=== PATIENT | male | born 1930 | race Caucasian/White ===

== ENCOUNTER 2016-08-08 05:22 | Observation (INO) | payer MEDICARE, OTHER ==
[~2016-08-08] VITALS: Ht 175.3 cm; Wt 77.5 kg
--- NOTE | ~2016-08-08 | HP ---
PATIENT'S NAME: MANE HART [facility] AGE: 85 Y [address] ROOM: [place] [address] LOCATION: [facility] [place] ADMIT DATE: 07/27/2016 History & Physical DISCHARGE DATE: FAMILY PHYSICIAN: Mio Rainey MD ATTENDING PHYSICIAN: Syd Huynh DATE OF SERVICE: SUBJECTIVE: An 85-year-old male who has a past history of transitional cell carcinoma of the bladder. He was seen here in June 2014 because of microscopic hematuria and a positive cytology, and at that time, he was found to have transitional cell carcinoma of the bladder, low-grade involving most of the trigone. This was resected and he received a course of BCG, instilled into the bladder weekly for 6 weeks. Followup cystoscopy in November 2014 showed no recurrence of his transitional cell carcinoma. In January 2016, he was found to have a solid nasty-looking tumor involving the left jazz-trigone with small papillary tumors throughout the bladder. He received a course of BCG again. In February 2016, he was found to have hydronephrosis to the left kidney and left retrograde showed a large filling defect in the left distal ureter. In February 2016, he had a partial cystectomy and ureteral reimplant. He was seen again in June 2016. At that time, he was having gross hematuria and evaluation of bladder revealed a tumor involving the left side of the bladder, extending across to the dome of the bladder. This was resected transurethrally and he had a low-grade papillary transitional cell carcinoma and showed a low-grade tumor. It is significant that he had that much regrowth in such a short time. Therefore, he is seen again for cystoscopy and probable TUR on bladder tumor. He is not a candidate for a total cystectomy. PAST MEDICAL HISTORY: Illnesses: 1. Arteriosclerotic heart disease. 2. Hypertension. 3. Carcinoma of the prostate. 4. Carcinoma of the bladder. 5. Azotemia. Operations: PATIENT'S NAME: MANE HART [facility] AGE: 85 Y [address] ROOM: [place] [address] LOCATION: [facility] [place] ADMIT DATE: 07/27/2016 History & Physical DISCHARGE DATE: FAMILY PHYSICIAN: Mio Rainey MD ATTENDING PHYSICIAN: Syd Huynh 1. Total prostatectomy. 2. Carotid endarterectomy. 3. As above. ALLERGIES: SULFA. PHYSICAL EXAMINATION: GENERAL: A well-developed, well-nourished male. CHEST: Clear to auscultation. HEART: Normal sinus rhythm. ABDOMEN: Soft with no palpable masses. : Normal penis. Testicles are normal size and normal to palpation. Prostatic fossa is empty. RECTAL: Good sphincter tone and no palpable masses. EXTREMITIES: Negative. IMPRESSION: Recurrent transitional cell carcinoma of the bladder. MD KAROL MAZARIEGOS/kevin /[id number] D: [id number] T: [id number] HISTORY & PHYSICAL
--- NOTE | ~2016-08-08 | OR ---
PATIENT'S NAME: MANE HART [facility] AGE: 85 Y [address] ROOM: [place] [address] LOCATION: [facility] [place] ADMIT DATE: 08/08/2016 OR/Procedure Report DISCHARGE DATE: FAMILY PHYSICIAN: Mio Rainey MD ATTENDING PHYSICIAN: Jeromy Huynh SURGEON: Jeromy Huynh MD TICKET DISPENSER CHANGER: DATE OF PROCEDURE: 08/08/2016 PREOPERATIVE DIAGNOSIS: Transitional cell carcinoma of the bladder. POSTOPERATIVE DIAGNOSIS: Transitional cell carcinoma of the bladder. OPERATION: Transurethral resection of the bladder tumor. DESCRIPTION OF PROCEDURE: After adequate anesthesia, he was prepped and draped. A cystoscope was passed. The anterior urethra was normal. Prostate was absent. Examination of the bladder revealed a tumor at the bladder neck area, and then in the dome of the bladder to the left, there was an extensive tumor again. Resectoscope was inserted and the tumor in the dome was all resected and the entire area was then thoroughly fulgurated with a rollerball. Tumor at the bladder neck was also resected. A 20 3-way flow June catheter was inserted and he was accompanied to recovery area. JEROMY HUYNH MD EKL/modl /[id number] d: 08/08/162127 t: 08/09/16 1021, OPERATIVE SUMMARY
[~2016-08-08 05:22] MED LIST: ASPIRIN (CHILDR81 MG PO; ASPIRIN325 MG PO; CENTRUM SILVER1 TAB PO; COZAAR100 MG PO; DOCUSATE SODIU1 EACH PO; ENALAPRIL MALEA20 MG PO; FISH OIL 1,2001 EACH PO; LIBRIUM5 MG PO; LIPITOR20 M1 PO; LOPRESSOR50 MG PO; MILK OF MA400 MG/5 M PO; NITROSTAT0.4 MG SL; PRESERVISION A1 EACH PO; RESTASIS1 EACH OPHTH; SYMBICORT 80-10.2 GM INH; THERA-VITE W/ B1 TAB PO; TYLENOL EXTRA500 MG PO; VASOTEC20 MG PO
[2016-08-08 06:07] LABS: BASOPHIL # 0.1 K/uL (0.0-0.2); BASOPHIL % 0.8 %; EOSINOPHIL # 0.2 K/uL (0.0-0.5); EOSINOPHIL % 3.2 %; HEMATOCRIT 34.9 % (33.0-50.0); HEMOGLOBIN 10.8 g/dL (11.0-16.0); IMMATURE GRANULOCYTE % 0.3 %; LYMPHOCYTE # 1.9 K/uL (0.8-4.0); LYMPHOCYTE % 26.3 %; MCH 26.7 pg (27.0-34.0); MCHC 30.9 gm/dL (32.0-36.5); MCV 86.2 fl (83.0-98.0); MONOCYTE # 0.6 K/uL (0.0-1.0); MONOCYTE % 8.8 %; MPV 9.3 fl (9.4-12.4); NEUTROPHIL # (ANC) 4.3 K/uL (1.4-9.0); NEUTROPHIL % 60.6 %; NRBC % 0 /100WBC (0-0.00); PLATELET COUNT 209 K/uL (150-450); RDW-CV 13.8 % (11.9-14.6); WBC 7.1 K/uL (4.0-11.0)
[2016-08-08 06:10] LABS: RBC 4.05 M/uL (3.50-5.50)
--- NOTE | 2016-08-08 14:33 | NUR ---
Significant Event: PATIENT ALERT AND ORIENTED X 3. AFEBRILE, VSS. PACED RHYTHM. O2 SATS ABOVE 90% ON ROOM AIR. PAIN TOLERABLE. FENTANYL IVP GIVEN IN PACU FOR SEVERE PAIN. SEE EMAR. DR. KIRK NOTIFIED OF CONTINUED CATHETER DISCOMFORT AND B&O SUPPOSITORY GIVEN AT 0904. PATIENT HAS BEEN RESTING COMFORTABLY SINCE. REPORTS MILD "DISCOMFORT". 3-WAY CATHETER TO CBI, MODERATE FLOW, PINK TINGED URINE. 6000 ML IRRIGATED, 5700 ML URINE OUT IN PACU. FLUSHED X 2 DUE TO BLOOD CLOTS. ACCUCHEK TAKEN AT 0817 = 104, AND 1122 = 139. MILD SLIDING SCALE ORDERED. IV FLUIDS INFUSING TO RIGHT LATERAL FOREARM. TOLERATING CLEAR LIQUIDS WELL. TO REMAIN ON BEDREST, REPOSITIONED INTERMITTENTLY. PNEUMATIC PUMPS ON. DAUGHTER UPDATED THROUGHOUT PACU STAY, REFUSED OFFER TO COME TO PACU. Follow up:
--- NOTE | 2016-08-08 19:07 | NUR ---
Significant Event: Patient A/O x3. VS stable, on RA. Patient has CBI going at moderate. Patient denies numbness or tingling to extremities. Patient arrived to the unit from PACU at 1425. Patient bedrest with q2h repo. No complains of pain. Patient was given beef broth, orange juice, and cracker. Patient has a HX of low blood sugars. Patient pleasant and cooperative with cares. Follow up:
--- NOTE | 2016-08-09 04:01 | NUR ---
Significant Event:PT IS A/O X3. ON BEDREST. HAS BASHIR W/ CBI RUNNING @ SLOW RATE, LIGHT YELLOW TO SLIGHT PINK @ TIMES. IV TO R FA IS SL. PT GOES BY "[facility]O", PT IS NOT DIABETIC BUT DOES HAVE ISSUSES W/ LOW BS. PT GIVEN CARBS THROUGHOUT THE NIGHT DUE TO FLUIDS BEING SL. PT RAN SLIGHT TEMP OF 100.0 @ 0000, NO C/O PAIN. PT HOPES TO GO HOME TODAY. Follow up:EDUARDO
--- NOTE | 2016-08-09 11:24 | NUR ---
D: Orders received for the patient to be discharged to home today with his harmon catheter. I: Dismissal instructions were prepared and reviewed with the patient virtually. The following information was discussed including Krames teaching sheets: Dishcarge instructions for Transurethral bladder tumor resection, harmon catheter removal, Discharge instructions-caring for your Indwelling urinary catheter, Emptying and cleaning your urinary catheter bag, discharge instructions for your leg bag, and Preventing DVT. Reviewed follow up appointment with Dr. Huynh. R: The patient verbalized understanding of the dismissal education at the time of teaching with no further questions. P: The above information was shared with the primary nurse and the charge nurse the the dismissal education was completed. The patient is ready for discharge to the front door via wheel chair by nursing staff.
--- NOTE | 2016-08-09 12:32 | NUR ---
SPOKE TO PATIENT REGARDING CM AND OUR ROLE. 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 HE ASKED ABOUT RESOURCES FOR HER AND WANTED THE ADRESS OF [employer]. I GAVE HIM INFO ON THIS. HE REPORTS THAT HE HAS CHILREN THAT LIVE NEAR BY WHO HELP HIM WHEN HE ASKS FOR HELP. HE ALSO WOULD LIKE A WALKER. I GAVE HIM RESOURCES OF WHERE HE CAN GET ONE. HE REPORTS THAT HIS DAUGHTER IS CHECKING ON GETTING ONE FOR HOME. PATIENT DOES NOT ANTICIPATE ANY OTHER DISCHARGE NEEDS AT THIS TIME.
--- NOTE | 2016-08-09 13:50 | NUR ---
DISMISSED PER W/C TO CAR ACCOMPANIED BY HOME HEALTH CAREGIVER & DAUGHTER.vIRTUAL NURSE DID DISCHARGE TEACHING.
[2016-11-29] MEDS ORDERED: CENTRUM SILVER1 EAC5 PO (10:03)
[2016-11-29] MEDS ORDERED: PRESERVISION A1 EACH PO (10:03)
== END 2016-08-09 11:35 | disposition disaster alternative care site (69) ==
LOC: GSDC 05:22 → GMSU 05:22 → GSDC 05:24 → GMSU 05:24
PROVIDERS: ADMIT Urology
PROC: 0T5B8ZZ Destruction of Bladder, Via Natural or Artificial Opening Endoscopic (ICD-10-PCS; principal; 2016-08-08)
DX: C67.1 Malignant neoplasm of dome of bladder (principal); I25.10 Atherosclerotic heart disease of native coronary artery without angina pectoris; I10 Essential (primary) hypertension; R79.89 Other specified abnormal findings of blood chemistry; Z88.2 Allergy status to sulfonamides; Z98.890 Other specified postprocedural states
CPT/HCPCS: J3010; J7030

== ENCOUNTER 2016-09-26 05:21 | Observation (INO) | payer MEDICARE, OTHER ==
[~2016-09-26] VITALS: Ht 175.3 cm; Wt 70.2 kg
--- NOTE | ~2016-09-26 | HP ---
PATIENT'S NAME: MANE HART [facility] AGE: 86 Y [address] ROOM: [place] [address] LOCATION: [place] ADMIT DATE: 09/26/2016 History & Physical DISCHARGE DATE: FAMILY PHYSICIAN: Mio Rainey MD ATTENDING PHYSICIAN: Jeromy Huynh DATE OF SERVICE: HISTORY OF PRESENT ILLNESS: An 86-year-old male who has a past history of transitional cell carcinoma of the bladder. In June 2014, he was found to have microscopic hematuria and a positive cytology, and his evaluation revealed transitional cell carcinoma of the bladder with low grade involving most of the trigone. This was resected and he received a course of BCG. A followup cystoscopy in November 2014 showed no recurrence. In January 2016, he was found to have a solid nasty looking tumor involving the left hemitrigone with small papillary tumors throughout the bladder. These were resected, and he received a course of BCG. His evaluation in February 2016 revealed hydronephrosis of the left kidney with a large filling defect in the left distal ureter, and he subsequently had a partial cystectomy with ureteral reimplant. Since then, his tumor has become more aggressive, more invasive, more poorly differentiated, and required frequent TUR of the bladder tumors. PAST MEDICAL HISTORY: Illnesses: 1. Arteriosclerotic heart disease. 2. Hypertension. 3. Carcinoma of the prostate. 4. Carcinoma of the bladder. 5. Azotemia. PAST SURGICAL HISTORY: Operations: 1. Total prostatectomy. 2. Carotid endarterectomy. 3. As above. ALLERGIES: SULFA. PATIENT'S NAME: MANE HART [facility] AGE: 86 Y [address] ROOM: [place] [address] LOCATION: [facility] ADMIT DATE: 09/26/2016 History & Physical DISCHARGE DATE: FAMILY PHYSICIAN: Mio Rainey MD ATTENDING PHYSICIAN: Jeromy Huynh PHYSICAL EXAMINATION: GENERAL: A well-developed, well-nourished male. CHEST: Clear to auscultation. HEART: Normal sinus rhythm. ABDOMEN: Soft with no palpable masses. GENITOURINARY: Normal penis. Testicles are normal size and normal to palpation. Prostatic fossa is empty. RECTAL: Good sphincter tone. EXTREMITIES: No edema. IMPRESSION: Recurrent transitional cell carcinoma of the bladder. JEROMY K MD KAROL HUYNH/kevin /[id number] D: [id number] T: [id number] HISTORY & PHYSICAL
--- NOTE | ~2016-09-26 | OR ---
PATIENT'S NAME: MANE HART [facility] AGE: 86 Y [address] ROOM: [place] [address] LOCATION: [facility] [place] ADMIT DATE: 09/27/2016 OR/Procedure Report DISCHARGE DATE: FAMILY PHYSICIAN: Mio Rainey MD ATTENDING PHYSICIAN: Jeromy Huynh SURGEON: Jeromy Huynh MD ELECTRICAL TECH/PROJECT MANAGER: DATE OF PROCEDURE: 09/27/2016 PREOPERATIVE DIAGNOSIS: Transitional cell carcinoma of the bladder. POSTOPERATIVE DIAGNOSIS: Transitional cell carcinoma of the bladder. PROCEDURE PERFORMED: Cystoscopy, fulguration of bladder tumor. DESCRIPTION OF PROCEDURE: After adequate anesthesia, cystoscope was inserted and he had tumor around the left trigone area and then laterally on the left lateral wall towards the dome. Resectoscope was inserted and with the rollerball all this tumor was fulgurated. A #20 three-way June catheter was inserted. He was accompanied to the recovery area. JEROMY HUYNH MD EKL/modl /[id number] d: 09/28/16 0452 t: 09/29/16 0431, OPERATIVE SUMMARY
[2016-09-26 05:56] LABS: BASOPHIL # 0.1 K/uL (0.0-0.2); BASOPHIL % 0.8 %; EOSINOPHIL # 0.2 K/uL (0.0-0.5); EOSINOPHIL % 3.2 %; HEMATOCRIT 35.6 % (33.0-50.0); HEMOGLOBIN 11.5 g/dL (11.0-16.0); IMMATURE GRANULOCYTE % 0.1 %; LYMPHOCYTE # 2.2 K/uL (0.8-4.0); LYMPHOCYTE % 30.7 %; MCH 28.8 pg (27.0-34.0); MCHC 32.3 gm/dL (32.0-36.5); MCV 89.2 fl (83.0-98.0); MONOCYTE # 0.7 K/uL (0.0-1.0); MONOCYTE % 9.5 %; MPV 9.7 fl (9.4-12.4); NEUTROPHIL % 55.7 %; NRBC % 0 /100WBC (0-0.00); PLATELET COUNT 224 K/uL (150-450); RBC 3.99 M/uL (3.50-5.50); RDW-CV 17.4 % (11.9-14.6); WBC 7.2 K/uL (4.0-11.0)
[2016-09-26 06:13] LABS: ALBUMIN 3.6 gm/dL (3.5-5.0); ANION GAP 11.8 (10.0-19.0); CALCIUM 8.7 mg/dL (8.5-10.5); CREATININE 2.7 mg/dL (0.6-1.3); POTASSIUM 4.8 mMol/L (3.7-5.1); TOTAL BILIRUBIN 1.4 mg/dL (0.0-1.5); TOTAL PROTEIN 7.8 g/dL (6.0-8.4)
--- NOTE | 2016-09-26 15:58 | NUR ---
Significant Event: Patient is alert and oriented x3. Blood pressure has been in the 80-100's. Dr. Huynh is aware. Has denied pain since being to the floor. Bedrest. Tolerating clear liquids. Fluids infusing into the R)wrist. Very pleasant patient. Cooperative with cares.
--- NOTE | 2016-09-27 01:39 | NUR ---
SIGNIFICANT EVENT: Patient alert & oriented. VSS on RA - Temp of 100.8 at second assessment but decreased with removal of blankets. R) wrist PIV infusing D5 1/2NS at 100 mL/hr. Tolerating clear liquids well. Bedrest. CBI running at moderate rate - urine is pink to pale pink. Allergies to sulfa and lidocaine. Pleasant and cooperative with cares.
--- NOTE | 2016-09-27 13:55 | NUR ---
Significant Event: Pt c/o intermittent penial pain, good relief with tylenol. June draining drk red urine this am. Dr. Huynh rounded around 1030 and wanted CBI started again, bedrest. CBI running very slow, urine clear. Regular diet. Possible dc tomorrow. Follow up:
--- NOTE | 2016-09-28 03:31 | NUR ---
Significant Event: Patient alert and oriented X4. Resting in bed. CBI restarted yesterday. Patient upset that he is no longer receiving IV dextrose and states that staff doesn't understand he needs to eat every 2 hours to keep his blood sugars up. Patient calmed down and asked to have snacks at the bedside to he could snack throughout the night. Vitals stable and on room air. Has pacemaker. Tylenol given at bed time. June has light pink urine. Some clots noted. Probably D/C today. IV to R) wrist Follow up:
--- NOTE | 2016-09-28 14:15 | NUR ---
D: ORDERS RECEIVED FOR THE PATIENT TO BE DISCHARGED TO HOME TODAY. I: DISMISSAL INSTRUCTIONS WERE PREPARED BY THE VIRTUAL NURSE AND REVIEWED WITH THE PATIENT AND FAMILY AT THE BEDSIDE BY THE PRIMARY NURSE KAREN QUEEN. THE FOLLOWING INFORMATION WAS PREPARED DISCHARGE INSTRUCTIONS FOR TRANSURETHRAL BLADDER TUMOR RESECTION, DISCHARGE INSTRUCTIONS CARING FOR YOUR INDWELLING URINARY CATHETER, EMPTYING AND CLEANING YOUR URINARY CATHETER BAG AND PREVENTING DVT. DR. KIRK WILL CALL THE PATIENT AT HOME ON MONDAY NO FOLLOW UP APPOINTMENT AT THIS TIME. R: WILL PROVIDE EDUCATION AND ANSWER ALL QUESTIONS AT THAT TIME. P: THE ABOVE INFORMATION WAS SHARED WITH THE PRIMARY NURSE AND THE CHARGE NURSE THAT THE DISMISSAL INSTRUCTIONS WERE COMPLETED AND READY TO REVIEW WITH THE PATIENT.
--- NOTE | 2016-09-28 15:08 | NUR ---
Significant event: Patient is alert and oriented. VSS. ON room air. IV dc'd at 1400. June in [address] and is patent. Has no complaints of pain. Is tolerating regular diet. Has had BM's today. Ambulates with SBA and cane. Had glass of orange juice while waiting for paperwork. Daughter here to take patient home. Copy of discharge instructions, prescripitions, and education given to the patient. Informed pt that Dr Huynh will call him at home on Monday. Patient verbalizes understanding. Wheeled to north front doors to [employer] car.
[2016-11-29] MEDS ORDERED: PRESERVISION A1 EACH PO (10:03)
[2016-11-29] MEDS ORDERED: CENTRUM SILVER1 EAC5 PO (10:03)
== END 2016-09-28 14:22 | disposition disaster alternative care site (69) ==
LOC: GSDC 05:21 → GPOC 05:30 → GMSU 09:42 → GPOC 13:00 → GSDC 09-27 10:40 → GMSU 09-27 10:40
PROVIDERS: ADMIT Urology
PROC: 0T5B8ZZ Destruction of Bladder, Via Natural or Artificial Opening Endoscopic (ICD-10-PCS; principal; 2016-09-27)
DX: C67.0 Malignant neoplasm of trigone of bladder (principal); C67.2 Malignant neoplasm of lateral wall of bladder; I25.10 Atherosclerotic heart disease of native coronary artery without angina pectoris; I10 Essential (primary) hypertension; R79.89 Other specified abnormal findings of blood chemistry; Z85.46 Personal history of malignant neoplasm of prostate; Z88.0 Allergy status to penicillin; Z98.890 Other specified postprocedural states
CPT/HCPCS: G0378; J0713; J3010; J7040; J7120

== ENCOUNTER 2016-11-30 06:03 | Inpatient (IN) | payer MEDICARE, OTHER ==
[~2016-11-30] VITALS: Ht 175.3 cm; Wt 74.6 kg
--- NOTE | ~2016-11-30 | DS ---
PATIENT'S NAME: MANE HART [facility] AGE: 86 Y [address] ROOM: [place] [address] [place] [facility] [place] DATE: 12/05/2016 Discharge Summary DISCHARGE DATE: 12/09/2016 FAMILY PHYSICIAN: Mio Rainey MD ATTENDING PHYSICIAN: Jeromy Huynh HISTORY/HOSPITAL COURSE: An 86-year-old male who has transitional cell carcinoma of the bladder. The past month he has been having gross hematuria. Cystoscopy and TUR of bladder tumor were done. He had extensive tumor over the entire dome of the bladder, down the left lateral wall, and over the trigone. He was then admitted, on CBI. His creatinine was 2.7. Ultrasound study showed normal right kidney, [id number] hydronephrosis of the left kidney. His hematocrit and hemoglobin were also low. He was given 2 units of blood. He was then dismissed home. Arrangements will be made for a total cystectomy. DIAGNOSIS: Transitional cell carcinoma of the bladder, high grade, invasive. OPERATION: TUR of bladder tumor. DISPOSITION: As above. JEROMY HUYNH MD EKL/modl /[id number] d: 12/12/16 0604 t: 12/13/16 0433, DISCHARGE SUMMARY
--- NOTE | ~2016-11-30 | HP ---
PATIENT'S NAME: MANE HART AGE: 86 Y [address] ROOM: [place] [address] LOCATION: [facility] [place] ADMIT DATE: 11/30/2016 History & Physical DISCHARGE DATE: FAMILY PHYSICIAN: PHYSICIAN, UNKNOWN ATTENDING PHYSICIAN: Syd Huynh DATE OF SERVICE: HISTORY OF PRESENT ILLNESS: An 86-year-old male, who has a past history of transitional cell carcinoma of the urinary bladder. He was first seen here in 2014, because of microscopic hematuria and a positive cytology. At that time, he was found to have transitional cell carcinoma of the bladder, low grade, involving most of the trigone. This was resected transurethrally and then he received a course of BCG. Followup cystoscopy in 2014, showed no recurrence. On January 2016, he had a solid, nasty looking tumor involving the left hemitrigone with small papillary tumors throughout the bladder. He received another course of BCG after the tumor was resected. In February 2016, he had progression of his disease, had developed hydronephrosis of the left kidney, and had tumor involving the left distal ureter. He then had a partial cystectomy with ureteral reimplant. Since then, he has had progression of his tumor from a low-grade to a high- grade cancer. His tumor grows back. He is seen now for resection of the tumor since he is not a candidate for a total cystectomy. PAST MEDICAL HISTORY: Illnesses: 1. Arteriosclerotic heart disease. 2. Hypertension. 3. Cancer of the prostate. 4. Cancer of the bladder. 5. Azotemia. Operations: 1. Total prostatectomy. 2. Carotid endarterectomy. 3. As above. PATIENT'S NAME: MANE HART AGE: 86 Y [address] ROOM: [place] [address] LOCATION: [facility] [place] ADMIT DATE: 11/30/2016 History & Physical DISCHARGE DATE: FAMILY PHYSICIAN: PHYSICIAN, UNKNOWN ATTENDING PHYSICIAN: Syd Huynh ALLERGIES: SULFA. PHYSICAL EXAMINATION: GENERAL: A well-developed, well-nourished, alert male. CHEST: Clear. HEART: Normal sinus rhythm. ABDOMEN: Soft with no palpable masses. : Normal penis. Testicles are normal to palpation. Prostatic fossa is empty. RECTAL: Good sphincter tone. No palpable masses. EXTREMITIES: Negative. IMPRESSION: Transitional cell carcinoma of the bladder. PLAN: As above. MD KAROL MAZARIEGOS/kevin /[id number] D: [id number] T: [id number] HISTORY & PHYSICAL
--- NOTE | ~2016-11-30 | OR ---
PATIENT'S NAME: MANE HART [facility] AGE: 86 Y [address] ROOM: [place] [address] LOCATION: [facility] [place] [place] ADMIT DATE: 11/30/2016 OR/Procedure Report DISCHARGE DATE: FAMILY PHYSICIAN: Mio Rainey MD ATTENDING PHYSICIAN: Jeromy Huynh SURGEON: Jeromy Huynh MD PEDIATRIC CARE COORDINATOR: DATE OF PROCEDURE: 11/30/2016 PREOPERATIVE DIAGNOSES: 1. Hematuria. 2. Transitional cell carcinoma of the bladder. POSTOPERATIVE DIAGNOSES: 1. Hematuria. 2. Transitional cell carcinoma of the bladder. PROCEDURES: 1. Cysto evacuation of clots. 2. Cystoscopy and fulguration of extensive bladder tumor. DESCRIPTION OF PROCEDURE: After adequate anesthesia, he was prepped and draped. The cystoscope was inserted. His urine was grossly bloody and all the clots were irrigated from the bladder. Examination of the bladder revealed extensive tumor involving almost the entire bladder. On the right lateral wall, there was an area that was bleeding. This was fulgurated, also at the bladder neck area, the tumor was bleeding. This was extensively fulgurated. A 20 three-way June catheter was inserted and connected to continuous irrigation. He was accompanied to the recovery area. JEROMY HUYNH MD EKL/modl /[id number] d: 11/30/16 1001 t: 12/02/16 0432, OPERATIVE SUMMARY
[~2016-11-30 06:03] MED LIST changes: +CENTRUM SILVER1 EAC5 PO
[2016-11-30 06:35] LABS: BASOPHIL % 0.5 %; EOSINOPHIL # 0.2 K/uL (0.0-0.5); EOSINOPHIL % 2.9 %; HEMATOCRIT 30.7 % (33.0-50.0); HEMOGLOBIN 10.1 g/dL (11.0-16.0); IMMATURE GRANULOCYTE % 0.3 %; LYMPHOCYTE # 1.8 K/uL (0.8-4.0); LYMPHOCYTE % 29.3 %; MCH 30.1 pg (27.0-34.0); MCHC 32.9 gm/dL (32.0-36.5); MCV 91.4 fl (83.0-98.0); MONOCYTE # 0.6 K/uL (0.0-1.0); MONOCYTE % 9.1 %; MPV 9.6 fl (9.4-12.4); NEUTROPHIL # (ANC) 3.6 K/uL (1.4-9.0); NEUTROPHIL % 57.9 %; NRBC % 0 /100WBC (0-0.00); PLATELET COUNT 216 K/uL (150-450); RBC 3.36 M/uL (3.50-5.50); WBC 6.3 K/uL (4.0-11.0)
[2016-11-30 06:36] LABS: RDW-CV 14.5 % (11.9-14.6)
[2016-11-30 06:50] LABS: ALBUMIN 3.5 gm/dL (3.5-5.0); ANION GAP 12.5 (10.0-19.0); CALCIUM 8.2 mg/dL (8.5-10.5); CREATININE 2.7 mg/dL (0.6-1.3); POTASSIUM 4.5 mMol/L (3.7-5.1); TOTAL PROTEIN 7.2 g/dL (6.0-8.4)
[2016-11-30 06:54] LABS: TOTAL BILIRUBIN 0.8 mg/dL (0.0-1.5)
[2016-12-05 06:44] LABS: BASOPHIL % 0.3 %; EOSINOPHIL # 0.2 K/uL (0.0-0.5); EOSINOPHIL % 3.6 %; IMMATURE GRANULOCYTE % 0.5 %; LYMPHOCYTE # 1.1 K/uL (0.8-4.0); LYMPHOCYTE % 19.1 %; MCV 90.9 fl (83.0-98.0); MONOCYTE # 0.6 K/uL (0.0-1.0); MONOCYTE % 9.6 %; MPV 9.4 fl (9.4-12.4); NEUTROPHIL # (ANC) 3.9 K/uL (1.4-9.0); NEUTROPHIL % 66.9 %; NRBC % 0 /100WBC (0-0.00); PLATELET COUNT 190 K/uL (150-450); RBC 2.65 M/uL (3.50-5.50); RDW-CV 13.9 % (11.9-14.6); WBC 5.8 K/uL (4.0-11.0)
[2016-12-05 06:48] LABS: HEMATOCRIT 24.1 % (33.0-50.0); HEMOGLOBIN 7.9 g/dL (11.0-16.0); MCH 29.8 pg (27.0-34.0); MCHC 32.8 gm/dL (32.0-36.5)
[2016-12-05 07:05] LABS: ALBUMIN 2.6 gm/dL (3.5-5.0); ANION GAP 9.7 (10.0-19.0); CALCIUM 7.9 mg/dL (8.5-10.5); CREATININE 2.4 mg/dL (0.6-1.3); POTASSIUM 4.7 mMol/L (3.7-5.1); TOTAL BILIRUBIN 0.8 mg/dL (0.0-1.5); TOTAL PROTEIN 5.9 g/dL (6.0-8.4)
[2016-12-06 15:48] LABS: HEMATOCRIT 31.8 % (33.0-50.0); HEMOGLOBIN 10.9 g/dL (11.0-16.0)
[2016-12-09 05:35] LABS: BASOPHIL % 0.4 %; EOSINOPHIL # 0.2 K/uL (0.0-0.5); EOSINOPHIL % 3.4 %; HEMOGLOBIN 10.2 g/dL (11.0-16.0); IMMATURE GRANULOCYTE % 0.3 %; LYMPHOCYTE # 1.4 K/uL (0.8-4.0); LYMPHOCYTE % 19.7 %; MCH 31.3 pg (27.0-34.0); MONOCYTE # 0.7 K/uL (0.0-1.0); MPV 9.8 fl (9.4-12.4); NEUTROPHIL # (ANC) 4.6 K/uL (1.4-9.0); NEUTROPHIL % 66.2 %; NRBC % 0 /100WBC (0-0.00); PLATELET COUNT 204 K/uL (150-450); RBC 3.26 M/uL (3.50-5.50); RDW-CV 13.9 % (11.9-14.6)
[2016-12-09 05:52] LABS: ALBUMIN 2.6 gm/dL (3.5-5.0); CALCIUM 8.2 mg/dL (8.5-10.5); CREATININE 2.4 mg/dL (0.6-1.3); PHOSPHORUS 2.7 mg/dL (2.5-4.9)
== END 2016-12-09 14:25 | disposition disaster alternative care site (69) | DRG 669 ==
LOC: GSDC 06:03 → GMSU 06:03 → GSDC 06:04 → GMSU 12-05 11:00
PROVIDERS: ADMIT Urology
PROC: 0T5C8ZZ Destruction of Bladder Neck, Via Natural or Artificial Opening Endoscopic (ICD-10-PCS; principal; 2016-11-30)
PROC: 0TCB8ZZ Extirpation of Matter from Bladder, Via Natural or Artificial Opening Endoscopic (ICD-10-PCS; principal; 2016-11-30)
PROC: 0T5B8ZZ Destruction of Bladder, Via Natural or Artificial Opening Endoscopic (ICD-10-PCS; principal; 2016-11-30)
PROC: 30233N1 Transfusion of Nonautologous Red Blood Cells into Peripheral Vein, Percutaneous Approach (ICD-10-PCS; 2016-12-05)
DX: C67.8 Malignant neoplasm of overlapping sites of bladder (principal); N13.30 Unspecified hydronephrosis; R31.0 Gross hematuria; I10 Essential (primary) hypertension; I25.10 Atherosclerotic heart disease of native coronary artery without angina pectoris; Z85.46 Personal history of malignant neoplasm of prostate; Z85.820 Personal history of malignant melanoma of skin; E78.00 Pure hypercholesterolemia, unspecified; H35.30 Unspecified macular degeneration; H91.93 Unspecified hearing loss, bilateral; I25.2 Old myocardial infarction; Z95.5 Presence of coronary angioplasty implant and graft; Z95.0 Presence of cardiac pacemaker
CPT/HCPCS: G0378; J0713; J2001; J3010; J7030; J7040; J7050; J7120; P9016

== ENCOUNTER 2016-12-13 05:11 | Inpatient (IN) | payer MEDICARE, OTHER ==
[~2016-12-13] VITALS: Ht 175.3 cm; Wt 74.5 kg
--- NOTE | ~2016-12-13 | ECHO ---
Transthoracic Echocardiography Report (TTE) Demographics Patient Name MANE HART Date of Study 12/19/2016 Patient Number [id number] Visit Number [id number] Date of 1930 Room Number G6328 Gender Male Number Age 86 year(s) Referring Antonio English Horn Player Terra Brower, Physician Rudolph RT,RVT,RDCS Physician Interpreting Mary Spears MD Pharmacy Tech Physician Supervising Ordering Antonio Galdamez MD/MLP Physician Nurse Stress Sales Support Administrator Conclusions Contractility Score Summary Normal Left Ventricular contractility was noted. Summary Normal LV/RV size and systolic function. The estimated left ventricular ejection fraction is 65-70%. Mild concentric left ventricular hypertrophy. Diastolic flow assessment reveals impaired relaxation consistent with Grade I diastolic dysfunction . The aortic valve is mildly sclerotic. There is mild aortic regurgitation by color Doppler. There is mild pulmonary hypertension. The pulmonary pressure (RVSP) is 42 mmHg. Mild pulmonic valve regurgitation by color Doppler. Procedure Type of Study TTE procedure:2D Echocardiogram, M-Mode, Doppler , Color Doppler. Procedure Date Date: 12/19/2016 Start: 07:33 AM Study Location: Inpatient Portable Technical Quality: Adequate visualization Indications:Hypertension. Appropriate Use Criteria: 9 Patient Status: Routine HR: 68 bpm BP: 178/79 mmHg Allergies - Sulfa. M-Mode/2D Measurements LV Diastolic Dimension: 4.65 cm LV Systolic Dimension: 2.84 cm LV Septum Diastolic: 1.2 cm LV PW Diastolic: 1.27 cm AO Root Dimension: 3.1 cm Cardiac Output: 5.48 l/min AV Cusp Separation: 1.9 cm RV Diastolic Dimension: 2.22 cm EF Estimated: 65 % LVOT: 2.2 cm MV EPSS: 0.4 cm LVOT VTI: 21.2 cm RV Base: 3.8 cm LV Stroke volume: 80.55 ml RV Length: 5.7 cm TAPSE: 2.6 cm TDI-S': 16.9 cm/s Doppler Measurements AV Peak Velocity: 1.42 m/s MV Peak E-Wave: 0.75 m/s AV Peak Gradient: 8.07 mmHg MV Peak A-Wave: 1.01 m/s AV Mean Gradient: 4 mmHg MV E/A Ratio: 0.74 LVOT Peak Velocity: 1.11 m/s MV P1/2t: 93 msec AV P1/2t: 416 msec TR Gradient:30.03 mmHg PV Peak Velocity: 1.06 m/s Estimated RAP:10 mmHg PV Peak Gradient: 4.49 mmHg Estimated RVSP: 40 mmHg Estimated PASP: 40.03 mmHg E' Septal Velocity: 0.05 m/s A' Septal Velocity: 0.1 m/s MV E/E' Ratio: 13.6 Findings Left Ventricle Mild concentric left ventricular hypertrophy. Diastolic assessment reveals Grade I diastolic dysfunction. Right Ventricle Normal right ventricle structure and function. Device lead noted in the right ventricle. Left Atrium The left atrium is mildly dilated. Right Atrium Normal right atrial size. IVC imaging is consistent with normal RA pressures. Mitral Valve Normal mitral valve structure and function. Aortic Valve The aortic valve is mildly sclerotic. There is mild aortic regurgitation by color Doppler. Tricuspid Valve There is mild pulmonary hypertension. The pulmonary pressure (RVSP) is 42 mmHg. Pulmonic Valve Mild pulmonic valve regurgitation by color Doppler. Pericardial Effusion Trace pericardial effusion. Miscellaneous Visualized portions of the aortic root and ascending aorta appear normal in size. Pleural Effusion No evidence of pleural effusion. Contractility Score LV regional wall motion:(0-Non visualized 1-Normal 2-Hypokinesis 3-Akinesis 4-Dyskinesis 5-Aneurysm) Signature dtt: TERRANCE WILKINSON dtd: 12/19/16 0733 Physician Self Edit
--- NOTE | ~2016-12-13 | ENPV ---
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 Procedure Type of Study: Veins:Upper Extremities Veins, Upper Extremity Left. Indications for Study:Unilateral edema. Additional Indications:Left upper extremity edema Appropriate Use Criteria:9 Allergies - Sulfa. Patient Status:Routine. Study Location:Inpatient Portable. Technical Quality:Adequate visualization. - Preliminary reported to:Dr.Garrett Trujillo. Velocities are measured in cm/s ; Diameters are measured in cm Right UE Vein Measurements 2D and Doppler Measurements + + + + +--------+ + !Location !Visualized !Compressibility !Thrombosis !Signal !Reflux ! + + + + +--------+ + !SCV !Yes ! !None !Phasic ! ! + + + + +--------+ + Left UE Vein Measurements 2D and Doppler Measurements + + + + + +---------+ !Location !Visualized !Compressibility !Thrombosis !Signal !Reflux ! + + + + + +---------+ !IJV !Yes !Yes !None !Phasic !No ! + + + + + +---------+ !SCV !Yes ! !Chronic !Continuous !No ! + + + + + +---------+ !Innominate !Yes ! !None !Phasic !No ! + + + + + +---------+ !Axillary !Yes !Yes !None !Diminished !No ! + + + + + +---------+ !Brachial !Yes !Yes !None ! !No ! + + + + + +---------+ !Radial !Yes !Yes !None ! !No ! + + + + + +---------+ !Ulnar !Yes !Yes !None ! !No ! + + + + + +---------+ !Basilic !Yes !Yes !None ! !No ! + + + + + +---------+ !Cephalic !Yes !Yes !None ! !No ! + + + + + +---------+ Signature dtt: MADALYN ROGEL dtd: 12/18/16 1046 Physician Self Edit
--- NOTE | ~2016-12-13 | CON ---
PATIENT'S NAME: MANE NOGUERA [facility] AGE: 86 Y [address] ROOM: [place] [address] LOCATION: GPCU ADMIT DATE: 12/13/2016 Consultation DISCHARGE DATE: FAMILY PHYSICIAN: Mio Rainey MD ATTENDING PHYSICIAN: LEANNE TRUJILLO REFERRING PHYSICIAN: Syd Huynh MD REFERRING PHYSICIAN: Dr. Trujillo. REASON FOR CONSULT: Followup on pacemaker. HISTORY OF PRESENT ILLNESS: Mr. Noguera is a pleasant 86-year-old man with history of bladder cancer status post radical cystectomy with establishment of ileal conduit. The patient has history of pacemaker implant. Cardiology was consulted to evaluate the pacemaker. The patient also has history of coronary artery disease, status post percutaneous intervention of right coronary artery in the past per medical records. The patient is a poor historian and does not speak much; however, answers simple questions. He denied any chest pain. No history of increasing shortness of breath. No history of palpitations. His property assessment monitor showed sinus rhythm with occasional atrial and ventricular pacing. REVIEW OF SYSTEMS: The patient denied any recent change in vision. No history of nausea, vomiting, or diarrhea. No history of fever. No history of chest pain. No history of palpitations. The patient complained of abdominal discomfort and mild pain. FAMILY HISTORY: The patient denied any premature coronary artery disease in family. SOCIAL HISTORY: The patient stated he lives with his . The patient used to smoke in the past. Presently, he is not smoking. PAST MEDICAL HISTORY: 1. Coronary artery disease, status post bare metal stent implant to right coronary artery in the past. Details not available. 2. Hypertension. 3. Dyslipidemia. 4. Macular degeneration of the eye. 5. History of carotid endarterectomy. 6. History of cataract extraction. [facility] AGE: 86 Y [address] ROOM: [place] [address] LOCATION: GPCU ADMIT DATE: 12/13/2016 Consultation DISCHARGE DATE: FAMILY PHYSICIAN: Mio Rainey MD ATTENDING PHYSICIAN: LEANNE TRUJILLO 7. History of inguinal hernia repair per medical records. PHYSICAL EXAMINATION: GENERAL: He is awake and responds to simple verbal commands. VITAL SIGNS: His heart rate is 71 beats per minute, blood pressure is 168/71 mmHg, respiratory rate 16, temperature 98.5. HEENT: His head is atraumatic and normocephalic. His oral mucosa is dry. He has central venous catheters on the right side of neck. RESPIRATORY: Bilateral vesicular breath sounds are audible. Breath sounds are diminished on both sides. CARDIOVASCULAR: S1 and S2 are audible. They are regular in rate and rhythm. Grade 2/6 ejection systolic murmur is audible in the left parasternal area. Pacemaker is present in the left infraclavicular space. ABDOMEN: A scar niya is present from recent surgery and wound dressings are present. Also the ileal conduit is present. EXTREMITIES: Showed no significant pedal edema. SKIN: Warm and dry. NEUROLOGIC: The patient is able to move all 4 extremities. LABORATORY DATA: Sodium 143, potassium 3.6, chloride 112, glucose 101, calcium 7.9, BUN 22, creatinine 1.9. Albumin 3.3. White blood cell count 7.6, hemoglobin 10.9, hematocrit 31.6, platelet count 209. His last echocardiogram in November 2015 showed ejection fraction of 60%, grade 1 diastolic dysfunction, mild mitral regurgitation, uavi-iy-vqobliuh aortic regurgitation, severe pulmonary hypertension with estimated RVSP of 59 mmHg. The patient had cardiac catheterization and percutaneous intervention of right coronary artery with bare metal stent in April 2012. MEDICATIONS: His current medications include: 1. Metoprolol 25 mg b.i.d. 2. Enalapril 20 mg daily. 3. Acetaminophen. 4. Haloperidol. 5. Heparin 5000 units b.i.d. 6. Ondansetron. 7. The patient is also getting haloperidol as needed. ASSESSMENT AND PLAN: 1. Uncontrolled hypertension. 2. Coronary artery disease, status post percutaneous intervention of right coronary artery with bare metal stent in April 2012. 3. Status post pacemaker implant. 4. Chronic kidney disease. PATIENT'S NAME: MANE NOGUERA [facility] AGE: 86 Y [address] ROOM: [id number] [place], [place] [address] LOC[facility]: [facility] ADMIT DATE: 12/13/2016 Consultation DISCHARGE DATE: FAMILY PHYSICIAN: Mio Rainey MD ATTENDING PHYSICIAN: LEANNE TRUJILLO 5. Bladder carcinoma status post radical cystectomy. 6. Change in mental status. RECOMMENDATIONS: We will continue medical therapy for coronary artery disease with beta- blockers. Please add aspirin when okay from Surgery aspect since the patient had recent surgery. Please consider addition of statins when stable from surgical aspect. His last lipid profile in December 2015 showed LDL cholesterol of 68. We will titrate metoprolol dose for blood pressure control. If inadequately controlled, we will consider addition of amlodipine. Management of bladder carcinoma and other medical issues per primary team. We will also get pacemaker interrogation. We will follow the patient along with you. Thank you for allowing us in taking part in the care of this pleasant patient. MD KATHYA BORDEN/kevin /[id number] d: 12/17/16 1332 t: 12/23/16 1626, CONSULTATION REPORT
--- NOTE | ~2016-12-13 | OR ---
PATIENT'S NAME: MANE HART [facility] AGE: 86 Y [address] ROOM: [address] [place], [place] [address] LOCATION: GPCU ADMIT DATE: 12/13/2016 OR/Procedure Report DISCHARGE DATE: FAMILY PHYSICIAN: Mio Rainey MD ATTENDING PHYSICIAN: LEANNE TRUJILLO SURGEON: Leanne Trujillo MD TICKET CHOPPER ASSEMBLER: Syd Huynh MD. DATE OF PROCEDURE: 12/13/2016 PREOPERATIVE DIAGNOSIS: Urothelial carcinoma of the bladder. POSTOPERATIVE DIAGNOSIS: Urothelial carcinoma of the bladder. OPERATIONS/PROCEDURES PERFORMED: 1. Robotic-assisted laparoscopic radical cystectomy. 2. Creation of ileal conduit urinary diversion with bilateral ureteral reimplantation. ANESTHESIA ADMINISTERED: General endotracheal anesthesia. INDICATION FOR PROCEDURE: The patient is a pleasant 86-year-old male with history of recurrent urothelial carcinoma of the bladder. He had had intractable gross hematuria, requiring numerous hospitalizations for clot urinary retention. The patient was explained the risks, benefits, indications, and alternatives to the above procedure and wished proceed and consented freely. DESCRIPTION OF OPERATION: The patient was brought back to the operating room, where he was placed on the OR table in the supine position. A surgical time- out was called where patient identification, surgical site, and procedure were then verified. We also did verify that the patient received an IV antibiotic within an hour of beginning the procedure. The patient then underwent successful administration of general endotracheal anesthesia. The patient was then moved and placed in a low lithotomy position. He was then prepped and draped in the usual sterile fashion using a Hibiclens prep for the genital area and chlorhexidine prep for his abdomen. The patient was then placed in steep Trendelenburg. Also anesthesia had placed an NG tube and we had placed a June catheter per urethra. I began by making a supraumbilical incision. The rectus fascia was grasped and elevated, and we pierced the peritoneum with a Veress needle and insufflated to 15 mmHg. We then passed an 8 mm non-bladed trocar easily into the peritoneum. We immediately passed the laparoscope and did not observe any injury to internal structure, so we placed additional trocars in the routine positions for the robotic cystectomy technique including an 8 mm and 12 mm trocar in the left abdomen as well as an 8 mm and 12 mm trocar in the right abdomen. The da Clemente Xi robot was then docked and PATIENT'S NAME: MANE HART [facility] AGE: 86 Y [address] ROOM: [id number] [place], [place] [address] LOCATION: GPCU ADMIT DATE: 12/13/2016 OR/Procedure Report DISCHARGE DATE: FAMILY PHYSICIAN: Mio Rainey MD ATTENDING PHYSICIAN: LEANNE TRUJILLO used for the remainder of the case. I began by incising the peritoneum deep in the rectovesical pouch. I swept the perirectal fat off the posterior aspect of the bladder. I then turned my attention to mobilizing the left ureter after taking down some adhesions in his left lower pelvis. The left ureter was freed up and mobilized down to the level of the bladder which appeared to be reimplanted into the dome of his bladder. The ureter was divided at the level of the bladder. I then turned my attention to the right ureter and freed this up, down to the level of the bladder, and the ureter was divided at the level of the bladder. I then incised the peritoneum lateral to the medial umbilical ligaments bilaterally. I continued the dissection bilaterally dividing the bladder vascular pedicles with a combination of bipolar cautery and sharp dissection. The bladder pedicles were now completely divided bilateral. I then continued along this plane and continued to sweep off the perirectal fat off the posterior aspect of the bladder. I then continued to drop down the bladder until I had completely mobilized the bladder down to the bladder neck. I then divided the bladder neck and visualized the June catheter and now completely divided the bladder neck, having the bladder completely off any remaining attachments. I inspected for hemostasis in the pelvis which was adequate. Given the palliative nature of this procedure for the patient, we opted not to proceed with a lymph node dissection at this point. I then placed a GABY drain through the most lateral left port site. I then created a tunnel for the left ureter along the sacral promontory underneath the colonic mesentery. The ureter was then pulled through the tunnel. It appeared that we had adequate length on the left ureter after it was mobilized. A suture tag was then placed on the left ureter. We then undocked the robot and lengthened our supraumbilical incision carrying this incision down and around the umbilicus and opened up the fascia. We then removed the bladder and this was sent for pathologic analysis. We then brought the ureters up through our open incision as well as brought up his ileum up through the incision. The ileocecal valve was identified. We pulled up a segment of the terminal ilium leaving approximately 15 cm to the ileocecal valve with a good arcade of blood vessels to the terminal segment. The mesentery was divided at that level. The ileum was stable. We then moved approximately 15 cm cephalad along the small bowel. The mesentery was divided at that level making sure that we had a good arcade to the conduit. Once again the JOHN stapler was fired and the ileal segment was isolated. We then re-established bowel continuity in our usual fashion using a JOHN stapler between the two limbs and a TA stapler across the top giving us a [id number] anastomosis. Stay sutures were placed at the end of the staple line. The mesenteric defect was also closed with a running Vicryl suture. We had a nice palpable anastomosis here. Attention was now turned to the ureteroileal anastomosis. The ureters were freshened up and spatulated. Using interrupted 4-0 Vicryl sutures, a ureteral ileal anastomosis was completed bilaterally. The right and left PATIENT'S NAME: MANE HART [facility] AGE: 86 Y [address] ROOM: [address] [address] [facility] ADMIT DATE: 12/13/2016 OR/Procedure Report DISCHARGE DATE: FAMILY PHYSICIAN: Mio Rainey MD ATTENDING PHYSICIAN: LEANNE TRUJILLO ureters were anastomosed identically in giving nice open anastomosis for each. A stoma had been previously marked. At that level, the skin and subcutaneous tissues were excised down to the fascia. Of note, we were able to use the right abdominal 12 mm port site for our stoma site. The fascia was then incised in a cruciate fashion and we had room for two fingers. Stay sutures were placed at the level of the fascia with interrupted 2-0 Vicryl sutures. The distal end of the conduit was then brought out through the ostomy being careful not to twist or put any tension on the anastomosis. It was then secured with the above-noted sutures. Of note, we also over sewed the staple line of the end of the conduit to keep the staple line out of contact with urine. The stoma was then matured in a poarch fashion using Vicryl suture. We had a nice healthy-appearing stoma putting out copious amounts of urine. A Alberto-Mohamud drain was left in the pelvis and the abdominal incision was closed. The fascia had been closed with a running 0 looped permanent suture and then covered with Dermabond. After closing it with 4-0 Monocryl subcuticular suture. Local anesthetic had been injected to all incision sites. All other skin incision sites were closed using 4-0 Monocryl in subcuticular fashion and covered with Dermabond. A drain stitch was also used to secure the GABY drain. The patient was then awoken from general anesthesia where he was extubated and transferred to the recovery bed and transported to the recovery room in good condition. COMPLICATIONS: None. ESTIMATED BLOOD LOSS: 100 mL. DRAINS: Indwelling GABY drain to bulb suction. FOLLOWUP PLAN: We will plan to admit the patient to the hospital to await return of bowel function prior to discharge home. LEANNE TRUJILLO MD GP/modl /[id number] CC: Mio Rainey MD d: 12/13/16 1849 t: 12/14/16 0803, OPERATIVE SUMMARY
--- NOTE | ~2016-12-13 | DS ---
PATIENT'S NAME: MANE HART [facility] AGE: 86 Y [address] ROOM: [address] [address] LOCATION: [facility] ADMIT DATE: 12/13/2016 Discharge Summary DISCHARGE DATE: 12/22/2016 FAMILY PHYSICIAN: Mio Rainey MD ATTENDING PHYSICIAN[facility]: An 86-year-old male who has progressive extensive carcinoma of the bladder and persistent gross hematuria. Initially, he had been tried on maintenance with fulguration of the bleeding areas, but this was unsuccessful. Therefore, a robotic cystectomy and formation of ileal conduit was done. Postoperatively, he did fine. His course was as expected. His bowel slowly returned to normal. He started to have normal bowel movements. He then was able to ambulate, and he was then transferred to [facility]. DIAGNOSIS: Transitional cell carcinoma of the bladder. OPERATION: Total cystectomy with ileal conduit formation. DISPOSITION: He is to follow up in the office. JEROMY KIRK MD EKFuad/modl /[id number] d: 12/26/16 0514 t: 12/27/16 0444, DISCHARGE SUMMARY
[2016-12-13 05:54] LABS: BASOPHIL # 0.1 K/uL (0.0-0.2); BASOPHIL % 0.8 %; EOSINOPHIL # 0.2 K/uL (0.0-0.5); EOSINOPHIL % 3.3 %; HEMATOCRIT 30.9 % (33.0-50.0); HEMOGLOBIN 10.2 g/dL (11.0-16.0); IMMATURE GRANULOCYTE % 0.2 %; LYMPHOCYTE # 1.5 K/uL (0.8-4.0); LYMPHOCYTE % 24.6 %; MCH 30.4 pg (27.0-34.0); MCV 92.2 fl (83.0-98.0); MONOCYTE # 0.6 K/uL (0.0-1.0); MONOCYTE % 9.1 %; MPV 9.2 fl (9.4-12.4); NEUTROPHIL # (ANC) 3.7 K/uL (1.4-9.0); NRBC % 0 /100WBC (0-0.00); RBC 3.35 M/uL (3.50-5.50)
[2016-12-13 05:56] LABS: PLATELET COUNT 250 K/uL (150-450)
[2016-12-13 06:07] LABS: ALBUMIN 3.3 gm/dL (3.5-5.0); ANION GAP 11.7 (10.0-19.0); CALCIUM 8.4 mg/dL (8.5-10.5); CREATININE 2.6 mg/dL (0.6-1.3); PHOSPHORUS 3.5 mg/dL (2.5-4.9); POTASSIUM 3.7 mMol/L (3.7-5.1)
[2016-12-13 13:36] LABS: BICARBONATE 23.1 mmol/L (18.0-23.0); PCO2 51 mmHg (35-45); PO2 270 mmHg (80-90)
[2016-12-13 13:37] LABS: POTASSIUM 3.9 mEq/L (3.7-5.1); SODIUM 139 mEq/L (135-145)
[2016-12-13 13:39] LABS: PCO2 58 mmHg (35-45); PO2 202 mmHg (80-90)
[2016-12-13 13:40] LABS: POTASSIUM 4.3 mEq/L (3.7-5.1); SODIUM 140 mEq/L (135-145)
[2016-12-13 13:40] LABS: PCO2 41 mmHg (35-45); PO2 149 mmHg (80-90)
[2016-12-13 13:41] LABS: BICARBONATE 20.9 mmol/L (18.0-23.0); POTASSIUM 4.2 mEq/L (3.7-5.1); SODIUM 143 mEq/L (135-145)
[2016-12-13 13:42] LABS: BICARBONATE 21.1 mmol/L (18.0-23.0); PCO2 40 mmHg (35-45); PO2 134 mmHg (80-90)
[2016-12-13 13:43] LABS: SODIUM 143 mEq/L (135-145)
[2016-12-13 15:19] LABS: HEMATOCRIT 34.6 % (33.0-50.0); HEMOGLOBIN 11.7 g/dL (11.0-16.0)
[2016-12-14 03:15] LABS: ANION GAP 11.1 (10.0-19.0); CALCIUM 7.5 mg/dL (8.5-10.5); CREATININE 2.9 mg/dL (0.6-1.3); POTASSIUM 4.1 mMol/L (3.7-5.1)
[2016-12-14 04:26] LABS: BASOPHIL # 0.1 K/uL (0.0-0.2); BASOPHIL % 0.4 %; EOSINOPHIL # 0.1 K/uL (0.0-0.5); EOSINOPHIL % 0.6 %; HEMATOCRIT 38.6 % (33.0-50.0); IMMATURE GRANULOCYTE # 0.1 K/uL (0.0-0.3); IMMATURE GRANULOCYTE % 0.4 %; LYMPHOCYTE # 1.2 K/uL (0.8-4.0); LYMPHOCYTE % 8.8 %; MCHC 33.7 gm/dL (32.0-36.5); MCV 88.5 fl (83.0-98.0); MONOCYTE # 0.8 K/uL (0.0-1.0); MONOCYTE % 5.8 %; MPV 10.6 fl (9.4-12.4); NEUTROPHIL # (ANC) 11.8 K/uL (1.4-9.0); NRBC % 0 /100WBC (0-0.00); RDW-CV 14.9 % (11.9-14.6)
[2016-12-14 04:42] LABS: MCH 29.8 pg (27.0-34.0); PLATELET COUNT 187 K/uL (150-450); RBC 4.36 M/uL (3.50-5.50)
--- NOTE | 2016-12-14 05:10 | NUR ---
Significant Event: A/O x3. More cooperative and conversational later in the night. C/O abd pain. Gave morphine 2 mg x3. 100.5-101.7 fevers. IV tylenol administered. VSS on 2L. SBP 130-160s. HR 90-100s. LS slightly coarse. Encouraged incentive spirometrey. Left abd dressing with some serosang saturation with 260 out of GABY drain. Middle/umbilical incision ACCOUNTS RECEIVABLE EXECUTIVE. Rt ilioconduit intact with 1600 output. Rt IJ quad lumen, D5% and half NS @ 120/hr. L)forearm IV venecia lock. Follow up: Contiue to monitor per plan of
--- NOTE | 2016-12-14 18:54 | NUR ---
Significant Event: Alert and oriented X 3. Can become confused at times. O2 at 1L while awake, increased to 3L while sleeping as O2 drops into the mid 80's. SBP 150's and 160's. HR 90's and 100's. PT and OT attempted to get patient up out of bed this shift, patient was uncooperative and becomes very angry. Patient rated pain at a 10/10 several times throughout the shift. Morphine given X 5, last given at 1839. Ileostomy bag draining clear urine with 675 ml out. GABY drain with 130 ml bloody drainage. Patient NPO with small sips of water to take medication. Quad lumen IJ to right side, flushes well with good blood return also infusing D5 1/2 at 120 ml/hr. Follow up:
[2016-12-15 03:33] LABS: CREATININE 2.7 mg/dL (0.6-1.3)
[2016-12-15 03:35] LABS: CALCIUM 7.4 mg/dL (8.5-10.5)
[2016-12-15 03:39] LABS: BASOPHIL % 0.2 %; EOSINOPHIL # 0.4 K/uL (0.0-0.5); HEMATOCRIT 34.8 % (33.0-50.0); HEMOGLOBIN 11.6 g/dL (11.0-16.0); IMMATURE GRANULOCYTE % 0.3 %; LYMPHOCYTE # 1.5 K/uL (0.8-4.0); LYMPHOCYTE % 11.4 %; MCH 30.3 pg (27.0-34.0); MCHC 33.3 gm/dL (32.0-36.5); MCV 90.9 fl (83.0-98.0); MONOCYTE # 0.9 K/uL (0.0-1.0); MONOCYTE % 7.1 %; NEUTROPHIL # (ANC) 10.3 K/uL (1.4-9.0); NRBC % 0 /100WBC (0-0.00); PLATELET COUNT 184 K/uL (150-450); RBC 3.83 M/uL (3.50-5.50); RDW-CV 14.7 % (11.9-14.6); WBC 13.2 K/uL (4.0-11.0)
--- NOTE | 2016-12-15 04:51 | NUR ---
Significant Event: Patient alert and oriented x3 for most of the shift. Disoriented with third assessment. Patient woke up thinking he was in [facility]. Difficulty with reorientation. Anxious and agitated with touch, movement, and cares with beginning of shift. C/O abdominal/surgical pain. Morphine given throughout the day per day shift with little to no relief. Zofran given x2 this shift with relief and comfort to patient. SBP 120s-170s. HR 70s-90s. Patient has episodes of apnea. Frequently mouthbreathes. On 3-4L O2 per NC. GABY drain continues to left abdomen. Dressing changed with beginning of shift. 180ml output. Urostomy patent with 400ml uop. Midline incision open to air. Right IJ with D5 1/2 at 120ml/hr. Left PIV saline locked. Patient refused to get up and refused repositioning throughout shift. More calm and cooperative after Zofran given. Follow up: Will continue to monitor per plan of care.
--- NOTE | 2016-12-15 13:33 | NUR ---
Reviewed chart and then introduced self and care management services to patient. Sitting up in chair, seems mostly oriented to place and situation, but at times makes comments that make me think he isn't tracking with conversation. Difficult to understand at times. Focused on how upset he is they got him up. Acknowledged his upset and tried to explain/encourage him to work with nurses and therapy for his benefit and healing and to prevent post op complications. He wasn't having it but was polite to me. Let him know insurance healthcare representative will be following to assist with dc planning, and that he likely will need to go to SNF for skilled stay, that Medicare will pay for a short skilled stay for him to work with therapies to get stronger. He didn't really acknowledge or participate in that part of conversation. Asked if his was in skilled nursing now, he reports she is at home with a 24 hour caregiver they hired. No family here right now, will follow and work with pt/family on where they might want him to go for skilled stay.
--- NOTE | 2016-12-15 19:08 | NUR ---
Significant Event: Patient is alert/oriented x3. Forgetful at times and will forget how he got to the hospital. Takes a while to reorient him. Patient does become restless during these episodes of forgetfulness. Vital signs are stable. On 3-4 L O2 per NC. Patient had 195 mL out of GABY drain and 650 mL out of ileoconduit. R) quad lumen IJ with IVF infusing at 120 mL/hr. Patient continues to be NPO except for sips of water and meds; Dr. Trujillo said that patient's diet cannot be advanced until he passes gas. Patient was very cooperative with physical therapy and did get up and ambulate to recliner. Morphine given x1, otherwise has denied any pain. Follow up: Continue to monitor per plan of care.
[2016-12-16 03:16] LABS: ANION GAP 8.6 (10.0-19.0); CREATININE 2.3 mg/dL (0.6-1.3); POTASSIUM 3.6 mMol/L (3.7-5.1)
[2016-12-16 03:21] LABS: CALCIUM 7.4 mg/dL (8.5-10.5)
[2016-12-16 03:27] LABS: BASOPHIL % 0.2 %; EOSINOPHIL # 0.4 K/uL (0.0-0.5); HEMATOCRIT 32.1 % (33.0-50.0); HEMOGLOBIN 10.9 g/dL (11.0-16.0); IMMATURE GRANULOCYTE % 0.3 %; LYMPHOCYTE # 1.4 K/uL (0.8-4.0); LYMPHOCYTE % 13.3 %; MCH 30.8 pg (27.0-34.0); MCV 90.7 fl (83.0-98.0); MONOCYTE # 0.5 K/uL (0.0-1.0); MPV 10.8 fl (9.4-12.4); NEUTROPHIL # (ANC) 8.1 K/uL (1.4-9.0); NEUTROPHIL % 77.2 %; NRBC % 0 /100WBC (0-0.00); PLATELET COUNT 169 K/uL (150-450); RBC 3.54 M/uL (3.50-5.50); WBC 10.5 K/uL (4.0-11.0)
--- NOTE | 2016-12-16 17:38 | NUR ---
Significant Event: A/O X1-2, 2 assist/gait belt/walker, awake, cooperative this morning, ambulates to waiting area x2 today, up in chair most of shift, restraints reapplied at 1600 for pt. becoming more restless, picking in air, pulling medical equipment, not following commands, visual hallucinations, attempting to crawl out of bed, Haldol x2, IV tylenol x1, R)IJ patent, Illeoconduit patent, GABY patent w/ serous drng. drsg around GABY changed-saturated w/ serous drng. midline incision D/I LEXII, lungs Dim BLL, o2 2l/nc, no flatus, remains NPO, frequent oral care given, Follow up: continue to mobilize.
--- NOTE | 2016-12-17 04:49 | NUR ---
Significant Event:Patient remains completely disoriented and inappropriate. Visual hallucinations noted. Bilateral wrist restraints in place. Patient attempted to kick and punch staff. Paced at times and looks as though he is paced on t-wave ? interrogation. Lungs cl/dim remains on 2L/NC. GABY to LLQ drsg is saturated but patient would not allow RN or staff near it to change it. 290ml out serosang. drainage. Ileoconduit to RLQ stoma looks great draining yellow mucous/liquid 1650ml out. Hypoactive BS with no BM. Unable to get good set of vitals without patient fighting or tensing up. HTN 160-170s had to hold HS dose of metoprolol d/t patient condition. R)IJ quad luman intact with good blood return. Follow up: Continue to have patient work with PT. Keep patient awake during the day with lights and windows open at all times.
[2016-12-17 05:04] LABS: ANION GAP 10.6 (10.0-19.0); CALCIUM 7.9 mg/dL (8.5-10.5); CREATININE 1.9 mg/dL (0.6-1.3); POTASSIUM 3.6 mMol/L (3.7-5.1)
[2016-12-17 05:07] LABS: BASOPHIL % 0.4 %; EOSINOPHIL # 0.4 K/uL (0.0-0.5); EOSINOPHIL % 4.8 %; HEMATOCRIT 31.6 % (33.0-50.0); HEMOGLOBIN 10.9 g/dL (11.0-16.0); IMMATURE GRANULOCYTE % 0.1 %; MCH 30.8 pg (27.0-34.0); MCHC 34.5 gm/dL (32.0-36.5); MCV 89.3 fl (83.0-98.0); MONOCYTE # 0.6 K/uL (0.0-1.0); MONOCYTE % 8.4 %; MPV 10.4 fl (9.4-12.4); NEUTROPHIL # (ANC) 5.6 K/uL (1.4-9.0); NEUTROPHIL % 73.3 %; NRBC % 0 /100WBC (0-0.00); RBC 3.54 M/uL (3.50-5.50); RDW-CV 13.7 % (11.9-14.6); WBC 7.6 K/uL (4.0-11.0)
[2016-12-17 05:09] LABS: PLATELET COUNT 209 K/uL (150-450)
--- NOTE | 2016-12-17 09:33 | NUR ---
A - PT SCREENED D/T LOS. PT IS DISORIENTED. PT S/P CYSTECTOMY. K+ 3.6, GLU 101, BUN/CRIMINOLOGY PROFESSOR 22/1.9. HYPO BF, (-) FLATUS. PT W/ 2-3+ BUE AND 1-2+ BLE EDEMA. PT IS NPO. EST NEEDS: [id number] KCALS, 72-87 GM PROTEIN, 1 ML/KCAL FLUIDS. D - AT RISK W/ INADEQUATE ORAL INTAKE R/T NEED FOR NPO STATUS S/P SURGERY. I - GOAL: 50% INTAKE BY DISMISSAL. M/E - WILL SEND ENSURE CLEAR WHEN DIET RESUMES. IF DIET DOES NOT RESUME IN 48 HOURS, CONSIDER PN. WILL F/U IN 2-3 DAYS.
[2016-12-17 09:43] LABS: MAGNESIUM 1.7 mg/dL (1.8-2.6); PHOSPHORUS 2.1 mg/dL (2.5-4.9)
--- NOTE | 2016-12-17 17:09 | NUR ---
Significant Event: DISORIENTED X3, REORIENTS AT TIMES. SBP 110-180s, HR 70-110S, SR/ST, PACED AT TIMES. AFEBRILE. WEANED DOWN TO ROOM AIR, SATURATIONS IN MID 90s. MSU STATUS. BILATERAL WRIST RESTRAINTS IN PLACE. R)IJ QUAD LUMEN INTACT, GOOD BLOOD RETURN, DRSG CHANGED THIS SHIFT. GABY DRAIN TO LLQ, DRSG CHANGED THIS SHIFT, 200ML OUT SEROSANG DRAINAGE. ILEOCONDUIT TO RLQ, STOMA PINK, DRAINING WELL. 1350 OUT THIS SHIFT. NPO, HYPOACTIVE BOWELS, DID PASS SOME GAS TODAY. UP IN CHAIR, WALKED IN COUGHLIN. 2ASSIST. TYLENOL GIVEN X1 FOR PAIN, WITH RELIEF.
[2016-12-18 04:16] LABS: ANION GAP 11.4 (10.0-19.0); CREATININE 1.7 mg/dL (0.6-1.3); POTASSIUM 3.4 mMol/L (3.7-5.1)
[2016-12-18 04:26] LABS: BASOPHIL % 0.5 %; EOSINOPHIL # 0.4 K/uL (0.0-0.5); EOSINOPHIL % 5.3 %; HEMATOCRIT 33.1 % (33.0-50.0); HEMOGLOBIN 11.2 g/dL (11.0-16.0); IMMATURE GRANULOCYTE % 0.3 %; LYMPHOCYTE # 1.1 K/uL (0.8-4.0); LYMPHOCYTE % 13.9 %; MCH 30.2 pg (27.0-34.0); MCHC 33.8 gm/dL (32.0-36.5); MCV 89.2 fl (83.0-98.0); MONOCYTE # 0.7 K/uL (0.0-1.0); MONOCYTE % 8.5 %; MPV 10.3 fl (9.4-12.4); NEUTROPHIL # (ANC) 5.5 K/uL (1.4-9.0); NEUTROPHIL % 71.5 %; NRBC % 0 /100WBC (0-0.00); PLATELET COUNT 236 K/uL (150-450); RBC 3.71 M/uL (3.50-5.50); RDW-CV 13.9 % (11.9-14.6); WBC 7.7 K/uL (4.0-11.0)
--- NOTE | 2016-12-18 05:14 | NUR ---
Significant Event: Patient has been disoriented to time/place throughout the night. He has been alert. Continues on soft-wrist restraints due to him pulling at lines and occasionally not allowing staff to perform cares on him. IM Haldol given x2. Patient in high-low bed. Continues to be NPO except for sips of water and medications. R) IJ quad lumen in place with D5 1/2NS infusing at 120 mL/hr. Dressing to GABY drain site changed tonight. GABY had 200 mL serosanguinous output. Ileoconduit has had good UOP as well. Patient is [facility] status so vitals taken twice a shift. VSS. On room air. Follow up: Hopefully advance diet today. Continue to assess continued need for restraints.
--- NOTE | 2016-12-18 15:41 | NUR ---
Significant Event: Paitent is disorented to time/place. Forgetful. Restraints continued for patients inability to follow commands and to help keep patients tubes intact. [id number]. P-70-90s. Afebrile. Room air with saturations in the upper 90s. R) IJ infusing 120ml/hr of D51/2NS. Ilioconduit had 1200ml out this shift. Patient us passing flatus. One scant mucous stool passed this AM. Bowel sounds still hypoactive. GABY drain had 260ml of serosanginous drainage this shift. Harshad sent to lab to check a creatine on the fluid. Diet advanced to clear liquid sips. Doppler of L) UA done today pending results. Up with 2A/walker. Ambulated in halls and sat in chairx1.
--- NOTE | 2016-12-19 05:13 | NUR ---
Shift Summary: PATIENT ALERT AND ORIENTED TO PLACE/PERSON. MUMBLES INCOHERENTLY AT TIMES. CONTINUES IN RESTRAINTS FOR BEING UNABLE TO FOLLOW COMMANDS AND KEEP TUBES INTACT. GABY DRAIN HAD 350 OUT. DRESSING C/D/I. ILEOCONDUIT HAD 1750 OF YELLOW URINE WITH WHITE SEDIMENT OUT. CAN ONLY HAVE SIPS OF WATER FOR DIET. R) IJ INFUSING D5W AT 120 ML/HR. BOWEL SOUNDS HYPOACTIVE. VITAL SIGNS STABLE. Follow Up: Advance Diet?
[2016-12-19 07:03] LABS: ANION GAP 9.4 (10.0-19.0); CALCIUM 7.8 mg/dL (8.5-10.5); CREATININE 1.6 mg/dL (0.6-1.3); POTASSIUM 3.4 mMol/L (3.7-5.1)
[2016-12-19 07:05] LABS: BASOPHIL % 0.4 %; EOSINOPHIL # 0.5 K/uL (0.0-0.5); HEMATOCRIT 31.9 % (33.0-50.0); HEMOGLOBIN 10.5 g/dL (11.0-16.0); IMMATURE GRANULOCYTE % 0.3 %; LYMPHOCYTE # 1.3 K/uL (0.8-4.0); LYMPHOCYTE % 19.4 %; MAGNESIUM 1.7 mg/dL (1.8-2.6); MCH 29.8 pg (27.0-34.0); MCHC 32.9 gm/dL (32.0-36.5); MCV 90.6 fl (83.0-98.0); MONOCYTE # 0.6 K/uL (0.0-1.0); MONOCYTE % 8.7 %; NEUTROPHIL # (ANC) 4.4 K/uL (1.4-9.0); NEUTROPHIL % 64.2 %; NRBC % 0 /100WBC (0-0.00); PHOSPHORUS 2.4 mg/dL (2.5-4.9); PLATELET COUNT 239 K/uL (150-450); RBC 3.52 M/uL (3.50-5.50); RDW-CV 14.3 % (11.9-14.6); WBC 6.8 K/uL (4.0-11.0)
--- NOTE | 2016-12-19 15:19 | NUR ---
A-NUTRITION F/U (+)FLATUS; HYPOACITVE BS. NO BM. SPOKE WITH RN AND SHE SAID THAT HE IS GETTING SIPS FROM NURSING AND PLAN IS TO START PO DIET RX TOMORROW. D5 @ 120 ML/HR RUNNING. LABS: NA 145, K+ 3.4, GLU 102, BUN 14, SOLE SCRAPER 1.6 NO NEW MEDS DIET RX: NPO (DAY #5) EST NUTR NEEDS: 4328-2343 KCALS AND 72-87 GM PROTEIN D-AT NUTRITION RISK W/INADEQUATE INTAKE OF NUTRIENTS R/T NPO STATUS AEB RECENT SURGERY I-IF PO INTAKE CANNONT BE RESUMED, RECOMMEND PN. M/E-GOAL: RESUME ORAL DIET WITHIN 24-48 HOURS 1)F/U DIET RX,GI, AND POC IN 2-3 DAYS 2)ASSIST NEEDED
--- NOTE | 2016-12-19 16:46 | NUR ---
Significant Event:Patient had small liquid stool. Getting 2gm og Mg, 40 PO KCL, x2 today. Increased Lopressor for some arrythmias- ?slow V-tach. Has been alert and oreintated,, forgetful. Calm and cooperative. Decreased IVF, and may diet. Is trying chicken noodle soup tonight. Has had some apple juice. Had 310 ml from GABY. Follow up:Advance diet
[2016-12-20 03:22] LABS: ANION GAP 10.1 (10.0-19.0); CALCIUM 7.7 mg/dL (8.5-10.5); CREATININE 1.6 mg/dL (0.6-1.3); PHOSPHORUS 2.3 mg/dL (2.5-4.9); POTASSIUM 4.1 mMol/L (3.7-5.1)
[2016-12-20 03:25] LABS: BASOPHIL % 0.3 %; EOSINOPHIL # 0.5 K/uL (0.0-0.5); EOSINOPHIL % 4.5 %; HEMATOCRIT 32.5 % (33.0-50.0); HEMOGLOBIN 10.9 g/dL (11.0-16.0); IMMATURE GRANULOCYTE % 0.3 %; LYMPHOCYTE # 1.3 K/uL (0.8-4.0); LYMPHOCYTE % 13.1 %; MCH 30.4 pg (27.0-34.0); MCHC 33.5 gm/dL (32.0-36.5); MCV 90.8 fl (83.0-98.0); MONOCYTE # 0.7 K/uL (0.0-1.0); MONOCYTE % 6.8 %; MPV 10.3 fl (9.4-12.4); NEUTROPHIL # (ANC) 7.6 K/uL (1.4-9.0); NRBC % 0 /100WBC (0-0.00); PLATELET COUNT 240 K/uL (150-450); RBC 3.58 M/uL (3.50-5.50); RDW-CV 14.2 % (11.9-14.6); WBC 10.2 K/uL (4.0-11.0)
--- NOTE | 2016-12-20 05:47 | NUR ---
Significant Event: Patient has been alert throughout the night and oriented to time and place. He knows the year and where he is at. Patient has been cooperative with cares and did sleep throughout the night. He ambulated to the bathroom with 2PA, gait belt, and walker and had one small bowel movement. Ileoconduit had excellent UOP. GABY drain had 340 mL out. Patient denied pain throughout the night. He had one pudding for snack last night. He has been using call light appropriately. Vital signs are stable. No arrhythmias. Continues on room air. Follow up: Continue to monitor per plan of care. May transfer to [facility].
--- NOTE | 2016-12-20 12:59 | NUR ---
Talked with daughter Marlene Thompson [phone] and then talked with patient. He does agree that he would go for a skilled stay at an SNF prior to going home so he can get stronger and learn how to take care of his ostomy. Marlene and pt grandson who stays with them and helps take care of pt will be here this afternoon to meet with WOC RN to learn ostomy care along with him. Gave pt options of [facility] and [facility] and he says he would prefer [facility]. Called [facility] and faxed referral information, asked them to come assess pt tomorrow.
--- NOTE | 2016-12-20 16:31 | NUR ---
Significant Event: Patient is alert and oriented to person and place. Can be forgetful at times. Speech sometimes difficult to understand. 190ml out GABY. 1075 out ileal conduit. IVF fluids D/C. Encouraged PO fluid intake. Dulcolax D/C'd. Metoprolol changed to 100mg BID. Central line removed and Dr. Huynh was okay with having no IV access. Patient has been calm and cooperative. Follow up: Transfer to [facility]?
--- NOTE | 2016-12-20 23:01 | NUR ---
Significant Event:A/O BUT DISORIENTED TO YEAR/MONTH. VSS ON RA. EDEMA TO LEFT ARM > RIGHT ARM, MD AWARE. DOPPLER NEGATIVE. NO CHANGES TO INCISION SITES FROM PRIOR SHIFT. DAUGHTER AWARE OF PATIENT TRANSFER. NO IV ACCESS OK WITH MD. Follow up:[facility] TO EVALUATE TOMORROW. PENDING PLACEMENT.
--- NOTE | 2016-12-21 03:50 | NUR ---
TRANSFER: FROM PCU. VSS. NO IV OR CENTRAL LINE, OK'D BY dR. JACK. POST-OP X7 DAYS TOTAL CYSTECTOMY FOR BLADDER CANCER. HAS ILEOCONDUIT TO R) UPPER ABDOMEN DRAINING LIGHT YELLOW URINE. GABY DRAIN TO LEFT LOWER ABDOMEN. MOTHER SAMUEL TO ASSESS IN THE AM. CONFUSED AT TIMES AND A LITTLE ANXIOUS OTHERWISE COOPERATIVE WITH CARES.
--- NOTE | 2016-12-21 12:12 | NUR ---
Susie from [facility] called and they are coming to assess pt at 1300. Let charge nurse know.
--- NOTE | 2016-12-21 14:39 | NUR ---
Received call from Susie at [facility], they can accept pt tomorrow, will plan on coming to get him at 1100. Will have nurse call report at [phone] and fax orders tomorrow to [phone]. Called and left voicemail for Dr Trujillo with the above information, and if not ready for discharge we can change plan accordingly. Called and left voicemail for daughter Marlene on her cell number as well, requested she call Susie at [facility] as they would like a family member to be a part of the admission paperwork. Will get orders on chart and packet started and ID screen done. I let pt know earlier that [facility] was coming to assess and I will let him know they have accepted and plan for tomorrow.
--- NOTE | 2016-12-21 15:19 | NUR ---
A - NUTRITION FOLLOW-UP TX FROM PCU. CONFUSED AT TIMES PER SHIFT REPORT. WT STABLE PER RECORD. LABS: GLU 105, CREA 1.6, PO4 2.3 MEDS: ON HALDOL DIET: REGULAR W/ ENSURE ENLIVE TID PER MD ORDER. INTAKE 46% X3 MEALS, RANGE BETWEEN 25-50%. POOR APPETITE PER PT. HAD ABOUT 25% OF LUNCH TODAY. LIKES BOTH ENSURE ENLIVE AND ENSURE CLEAR OKAY. ENCOURAGEMENT GIVEN. EST NEEDS: [id number] KCAL, 72-87 GRAMS PROTEIN, FLUID NEEDS: 1ML/KCAL D - INADEQUATE ORAL INTAKE RELATED TO DECREASED APPETITE EVIDENCED BY PO 46% X3 MEALS AND PATIENT REPORT. I - ENSURE ENLIVE BID; ENSURE CLEAR ONCE DAILY. M/E - GOAL: PT WILL BE ABLE TO TOLERATE >50% OF MEALS AND AT LEAST ONE ORAL SUPPLEMENT PER DAY IN 3-5 DAYS.
--- NOTE | 2016-12-21 17:00 | NUR ---
Significant event: Patient is alert and oriented. VSS on room air. NO IV access okay'd per MD. Has been up today with one assist walker and gait belt. Ileioconduit appliance in place. Teaching done by [facility] today. Is to have big drain bag on at night. Is on regular diet, and needs ensure with each meal. Has GABY drain also. NO complaints of pain today. LEft arm remains swollen. Plans [facility]. [facility] faxed the supply info to them for the ileioconduit. Midline incision is intact, no drainage noted. Cooperative with cares.
--- NOTE | 2016-12-21 22:06 | NUR ---
Significant Event:Pt alert and oriented x3. forgetful at times. No iV axcess. cooperative with cares. 1 assist with walker and gaitbelt. family up to visit pt. ensure with every meal. GABY intact. illiconduit bag intact and connected to big drainage bag for the night. will go to [facility] at 11 am hilda. pt reports he is excited for this. VSS. RA. report given to Graciela for remainder of shift Follow up:
--- NOTE | 2016-12-22 04:42 | NUR ---
Significant Event: CARES FOR 221 TO 0630. DENIES PAIN DURING REMAINDER OF NIGHT. NO IV ACCESS. ILEOCONDUIT TO NIGHT DRAINAGE. MIDLINE INCISION. DRESSING TO R) NECK FROM OLD CENTRAL LINE SITE. ON HI/LO BED AND BED ALARM ON FOR SAFETY. CALL FOR NEEDS. UP WITH 1-2 ASSIST. IS TO GO TO [facility] TODAY AT 1100. Follow up:
--- NOTE | 2016-12-22 09:25 | NUR ---
Checked chart and discharge orders have all been done. [facility] them to [facility] [place] [phone] [place] [facility] [place] [phone][place] Phone number for nurse to nurse given to KAREN Jensen [phone]. No other discharge needs.
--- NOTE | 2016-12-22 10:47 | NUR ---
Patient is an 86 year old male who has a past medical history of transitional cell carcinoma of the urinary bladder. This started in 2014. Patient had total cystocopy during this hospital stay. Past medical history includes arteriosclerotic heart disease, hypertension, cancer of the prostate and bladder, and azotemia. Illeoconduit in place, good urine output. GABY drain was removed this am. Small gauze dressing is over that. Complaints of mild pain this am, tylenol given at 0752. Midline abdominal incision that is skin glued and intact. Up with 1-2Pa and walker and gaitbelt. Forgetful at times. Oriented to place and self. Reorients easily. Lung sounds are clear and diminished throughout. Heart rate is regular. Has been cooperative with cares.
== END 2016-12-22 11:00 | DRG 653 ==
LOC: GMSU 05:11 → GPCU 05:11 → GMSU 12-20 23:03
PROVIDERS: Anesthesiology; Urology; ADMIT Urology
PROC: 8E0W4CZ Robotic Assisted Procedure of Trunk Region, Percutaneous Endoscopic Approach (ICD-10-PCS; principal; 2016-12-13)
PROC: 0TTB4ZZ Resection of Bladder, Percutaneous Endoscopic Approach (ICD-10-PCS; principal; 2016-12-13)
PROC: 0T1847C Bypass Bilateral Ureters to Ileocutaneous with Autologous Tissue Substitute, Percutaneous Endoscopic Approach (ICD-10-PCS; principal; 2016-12-13)
DX: C67.9 Malignant neoplasm of bladder, unspecified (principal); N17.0 Acute kidney failure with tubular necrosis; F05 Delirium due to known physiological condition; E83.42 Hypomagnesemia; I27.2 Other secondary pulmonary hypertension; E87.6 Hypokalemia; I10 Essential (primary) hypertension; I25.10 Atherosclerotic heart disease of native coronary artery without angina pectoris; I35.1 Nonrheumatic aortic (valve) insufficiency; N18.9 Chronic kidney disease, unspecified; Z95.0 Presence of cardiac pacemaker
CPT/HCPCS: A9270; J0131; J0690; J0713; J1630; J1644; J1940; J2270; J2405; J3010; J3475; J7030; J7040; J7050; P9016; P9045